=== PATIENT | male | born 2000 | race Hispanic/Latino ===

== ENCOUNTER 2024-07-16 20:25 | Emergency (ER) | payer SELFPAY ==
[2024-07-16 20:30] VITALS: BP 149/78
--- NOTE | 2024-07-16 20:52 | ED.PDOC.TRB ---
ED Provider Triage
-
Patient seen by provider in Triage?: Seen in Triage
This is a 24 year old male that comes in with c/o pain for one month from right knee to right buttocks. Denies any injury or falls. Denies any back issues.
--- NOTE | 2024-07-16 22:59 | ED.GENMED ---
History of Present Illness
General
Chief Complaint: Back Pain
Time Seen by Provider: 07/16/24 22:39
History of Present Illness
History of Present Illness:
24-year-old male without significant past medical history presenting for right-sided back pain. Patient reports for the past week he has been having pain radiating from his his right gluteal region to his thigh, stopping at the knee. Denies
inciting injury or trauma. Denies weakness or numbness to his extremity. He did take ibuprofen to the pain with mild relief. Denies any issues with urination or defecation. Denies fever or systemic symptoms. Denies ever having this pain in the
past. Denies abdominal pain, chest pain, difficulty breathing or additional acute medical complaints.
Patient Albanian-speaking with interpretation by photographic platemaker device
Phy Exam
Physical Exam
Physical Exam:
General: Well-appearing, no clinical signs of dehydration, nontoxic and in no acute distress
HEENT: protecting airway
Neck: appears supple
CV: Normal heart rate, regular rhythm, no evidence of cyanosis
Resp: No accessory muscle use, no increased work of breathing, lungs clear to auscultation bilaterally
Abd: No distention
Extremities: No deformities, no swelling, no erythema, no reproducible tenderness. No midline tenderness of the back. Minimal tenderness to the right lower lumbar region/gluteal region of the back
Neuro: alert, no focal neurologic deficit
: deferred
Rectal: deferred
Psych: Normal affect
Skin: Intact
Course
Orders/Labs/Results
Orders:
Orders
07/16/24 22:57
Ketorolac [Toradol] 15 mg IM NOW STA
Vital Signs
Initial and Last Documented VS:
Initial Vital Signs
Temp Pulse Resp BP Pulse Ox
98.4 F 60 16 149/78 96
07/16/24 20:30 07/16/24 20:30 07/16/24 20:30 07/16/24 20:30 07/16/24 20:30
Last Documented Vital Signs
Temp Pulse Resp BP Pulse Ox
98.4 F 78 19 149/78 96
07/16/24 20:30 07/16/24 23:15 07/16/24 23:15 07/16/24 20:30 07/16/24 23:15
MDM/Problems Addressed
MDM/Problems Addressed:
24-year-old male presenting for 1 week of right-sided back pain. Vital signs are normal.
Patient is well-appearing, no acute distress or discomfort. Patient symptom presentation physical exam appears most consistent with sciatica. No report of trauma. No deformity or swelling to the extremity, without concern for fracture or
malalignment. No neurovascular compromise, palpable pulses and sensation distally. No erythema/warmth or infectious symptoms, without concern for severe infectious process. No midline tenderness of the back, no focal neurologic deficits, no
fever, without concern for severe spinal pathology. 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 Will prescribe a steroid pack, denies known history of diabetes. Will also prescribe
cyclobenzaprine, however cautioned against somnolence. Will send prescription for ibuprofen. Return precautions discussed by photographic platemaker with patient and friend at bedside who verbalized understanding.
*Critical Care Note
Total Time (30-74mins, 75-104mins- exclusive of procedures): Not Applicable
ED Attending Note
-
Portions of this chart may have been created with voice recognition software.� Occasional wrong word or��sound alike� substitutions may have occurred due to the inherent limitations of voice recognition software.
Discharge Plan
Departure
Patient Disposition: Home (Routine Discharge)
Date of Disposition: 07/16/24
Time of Disposition: 23:03
Patient with high blood pressure during this ER visit?: No
Condition: Good
Discharge Problem:
Sciatic pain
Instructions: Low Back Pain (DC), Sciatica (DC)
Prescriptions:
New
cyclobenzaprine 10 mg tablet
10 mg PO BID 5 Days Qty: 10 0RF
ibuprofen 600 mg tablet
600 mg PO Q8H PRN (Reason: Pain) 5 Days Qty: 20 0RF
methylprednisolone [Medrol (Seb)] 4 mg tablets,dose pack
See Rx Instructions .ROUTE .COMPLEX Qty: 21 0RF
Rx Instructions:
for 6 days
Referrals:
NONE,* [Family Provider] -
Activity Restrictions/Additional Instructions:
You were seen in the emergency department for back pain
You were found to have sciatica
Please follow-up closely with your primary care physician.
Return to the emergency department for any worsening of your symptoms, or any development of chest pain, difficulty breathing, abdominal pain with persistent vomiting and inability to tolerate food or liquid by mouth (concern for dehydration),
weakness or numbness or extremity, headache or confusion, fever greater than 100.4, or any additional symptoms that are concerning to you.
Thank you for choosing [facility].
Interventions
Interventions:
*Risk Screen - Suicide Last Done: 07/16/24 21:33
*General Assessment Last Done: 07/16/24 21:33
*Neglect/Abuse Screening Last Done: 07/16/24 21:33
*ED COVID-19 Vaccine History Last Done: 07/16/24 21:33
*Nursing Disposition Last Done: 07/16/24 23:15
ED-Musculoskeletal Assessment Last Done: 07/16/24 21:33
Discharge Date and Time
Discharge Date/Time: 07/16/24 23:16
Print Language: LEBANESE
[2024-07-16] MEDS: TORADOL 15 MG IM (23:02)
== END 2024-07-16 23:16 | disposition home or self-care (01) ==
LOC: EMR 20:25
PROVIDERS: EMERGENCY PHYSICIAN Student in an Organized Health Care Education/Training Program
DX: M54.30 Sciatica, unspecified side (principal)
CPT/HCPCS: 99282; 96372